=== PATIENT | male | born 1955 | race Two or more races ===

== ENCOUNTER 2018-06-26 08:50 | Outpatient (CLI) | payer OTHER ==
[~2018-06-26 08:50] MED LIST: MICARDIS80 MG PO
== END 2018-06-26 09:04 | disposition home or self-care (01) ==
LOC: NUCLEAR 08:50
DX: I10 Essential (primary) hypertension (principal); R94.31 Abnormal electrocardiogram [ECG] [EKG]

== ENCOUNTER 2023-01-05 10:49 | Outpatient (CLI) | payer OTHER | END 2023-01-05 11:08 | disposition home or self-care (01) | LOC: MRI 10:49 | PROVIDERS: ATTEND Internal Medicine Cardiovascular Disease | DX: M12.9 Arthropathy, unspecified (principal); M46.48 Discitis, unspecified, sacral and sacrococcygeal region | CPT/HCPCS: 72148; 73721 ==

== ENCOUNTER 2023-01-18 09:31 | Outpatient (CLI) | payer OTHER | END 2023-01-18 09:46 | disposition home or self-care (01) | LOC: NUCLEAR 09:31 | PROVIDERS: ATTEND Internal Medicine Cardiovascular Disease | DX: I10 Essential (primary) hypertension (principal); G45.9 Transient cerebral ischemic attack, unspecified ==

== ENCOUNTER → 2024-05-01 08:33 | Outpatient (CLI) | payer OTHER | END | disposition home or self-care (01) | LOC: NUCLEAR 08:33 | PROVIDERS: ATTEND Internal Medicine Cardiovascular Disease | DX: G45.9 Transient cerebral ischemic attack, unspecified (principal) ==